=== PATIENT | female | born 1940 | race Caucasian/White ===

== ENCOUNTER 2018-03-09 11:17 | Inpatient (IN) ==
[2018-03-09] MEDS ORDERED: Ipratropium/Albuterol Neb 3 ML IH ONE (11:27)
[2018-03-09] MEDS ORDERED: methylPREDNISolone 125 MG/2 ML VIAL IVP ONE (11:27)
--- NOTE | 2018-03-09 11:47 | Emergency Department Note ---
Disposition Clinical Impression: Community acquired pneumonia Qualifiers: Laterality: unspecified laterality Qualified Code(s): J18.9 - Pneumonia, unspecified organism Disposition: Admitted As Inpatient Condition: Good Referrals: Luciano Berrios CNP [Primary Care Provider] - Forms: ED Satisfaction Letter Time of Disposition: 12:43 General Adult HPI - General Chief complaint: ED Shortness of Breath/Dyspnea Stated complaint: EMERSON Time Seen by Provider: 03/09/18 11:22 Source: patient, EMS Mode of arrival: EMS Limitations: no limitations Nursing Notes Reviewed: Yes Vital Signs Reviewed: Yes - History of Present Illness HPI Narrative: 77-year-old female with significant past medical history of COPD and asthma who is supposed to be on oxygen at night but has lost the prescription presenting to the emergency department chief complaint of shortness of breath. Patient states for the past 3 day she has had progressively worsening of her shortness of breath. Patient also describes changes in her sputum and describes it as a green thick material. Patient states she has been diagnosed with pneumonia around this time of year every year for the past 2-3 years. Patient has been using her nebulizer treatment at home as prescribed but has not been feeling any better with her treatments. She tried one treatment just prior to arrival. Patient states she has had subjective fevers at home at night. Has not taken her temperature. Patient also states she has had intermittent chest pain throughout these episodes located behind the left breast. At this time she is chest pain-free. Patient denies any cardiac history. Pain Scale: 2 - Related Data Home Medications Medication Instructions Recorded Confirmed Lisinopril [Zestril] 10 mg PO DAILY 03/04/16 03/05/16 Tramadol HCl [Ultram] 50 mg PO TID PRN 03/04/16 03/05/16 Multivit-Minerals/Folic/Ginkgo 1 tab PO DAILY 03/05/16 03/05/16 [One Daily For Women 50+ Adv Tb] Previous Rx's Medication Instructions Recorded predniSONE [PredniSONE] 40 mg PO DAILY #9 tablet 03/08/16 Allergies Allergy/AdvReac Type Severity Reaction Status Date / Time No Known Allergies Allergy Verified 03/04/16 14:36 All systems ED: reviewed and negative except as stated. Constitutional: Reports: fever (subjective) Eyes: Reports: as per HPI ENT ED: Reports: as per HPI Cardiovascular: Reports: chest pain, dyspnea on exertion Respiratory: Reports: cough, dyspnea, sputum production Gastrointestinal: Denies: abdominal pain, nausea, vomiting Genitourinary: Reports: as per HPI Musculoskeletal: Reports: as per HPI Integumentary: Reports: as per HPI Neurological: Reports: as per HPI Psychiatric: Reports: as per HPI Endocrine: Reports: as per HPI Hematological/Lymphatic: Reports: as per HPI Allergic/Immunologic: Reports: as per HPI Past Medical History - Past Medical History Attestation: Yes The following information was validated with the patient. Medical history: Reports: cancer, COPD, hyperlipidemia, hypertension Psychiatric history: Reports: no psych history - Social History Smoking Status: Never smoker Smokeless Tobacco Status: No Alcohol use: Reports: none Drug use: Reports: none Physical Exam - General Limitations: no limitations General appearance: alert, in no apparent distress - Head Head exam: atraumatic, normocephalic, normal inspection - Eye Eye exam: Present: normal appearance. Absent: scleral icterus, conjunctival injection - ENT ENT exam: normal exam, mucous membranes moist - Neck Neck exam: Present: normal inspection, full ROM - Chest Chest inspection: Present: normal inspection, symmetric chest wall rise - Respiratory Respiratory exam: Present: other (expiratory wheezing throughout) - Cardiovascular Cardiovascular exam: Present: normal rhythm, tachycardia, normal heart sounds - Abdominal Exam Abdominal exam: Present: soft, Non-Tender. Absent: distention, guarding, rebound - Extremities Exam Extremities exam: Present: normal inspection, full ROM - Neurological Exam Neurological exam: Present: alert, oriented X3 - Psychiatric Psychiatric exam: Present: normal affect, normal mood - Skin Skin exam: Present: warm Course Course Narrative: 77-year-old female presenting with shortness of breath. Patient has COPD. Supposed be on oxygen at home but has not filled the prescription. In the room she is alert and oriented 3. Tachycardic but hemodynamically stable. According to EMS when they arrived oxygen saturation was in the upper 80s. Patient's physical exam shows expiratory wheezing throughout but otherwise no acute abnormality. We will plan to perform a difficulty in breathing workup including basic labs, troponin, EKG, influenza swab, chest x-ray, breathing treatments and steroids. Disposition pending. Patient agrees with this plan. - Reevaluation(s) Reevaluation #1: Patient's laboratory analysis shows mild leukocytosis but otherwise unchanged from baseline. Chest x-ray concerning for focal consolidation. Patient has not had any recent admissions therefore we will provide her with azithromycin and Rocephin for pneumonia and admit her for further treatment and evaluation. Patient remains alert and oriented 3 and hemodynamically stable. Patient agrees with this plan. Family members at bedside agree as well. I spoke with the hospitalist houseperson Dr. Balderrama who agrees to accept the patient at this time. Vital Signs Temperature 98.3 F 03/09/18 11:20 Pulse Rate 106 03/09/18 11:20 Respiratory Rate 20 03/09/18 11:20 Blood Pressure 113/73 03/09/18 11:20 O2 Sat by Pulse Oximetry 100 03/09/18 11:20 Temperature 98.3 F 03/09/18 11:20 Pulse Rate 97 03/09/18 12:11 Respiratory Rate 18 03/09/18 12:11 Blood Pressure 102/58 03/09/18 12:11 O2 Sat by Pulse Oximetry 93 03/09/18 12:11 Oxygen Delivery Oxygen Delivery Room Air Medical Decision Making - Lab Data Result diagrams: 03/09/18 11:51 03/09/18 11:51 Lab Results 03/09/18 03/09/18 03/09/18 Range/Units 11:51 11:51 11:51 WBC 12.2 H (4.3-11.1) K/mcL RBC 4.18 (3.82-4.97) M/mcL Hgb 11.8 (11.5-15.4) g/dL Hct 36.5 (35.3-44.9) % MCV 87.3 (83.0-100.0) fL MCH 28.2 (28.0-33.3) pg MCHC 32.3 (31.6-35.5) g/dL RDW 13.3 (11.5-14.5) % Plt Count 297 (140-400) K/mcL MPV 10.2 (9.4-12.4) fL Immature Gran % 0.4 (0-4) % Seg Neutrophils % 85.8 % Lymphocytes % 6.3 % Monocytes % 6.8 % Eosinophils % 0.4 % Basophils % 0.3 % Neutrophils # 10.4 H (1.6-8.9) K/mcL Lymphocytes # 0.8 (0.6-4.6) K/mcL Monocytes # 0.8 (0.0-1.3) K/mcL Eosinophils # 0.1 (0.0-0.6) K/mcL Basophils # 0.0 (0.0-0.2) K/mcL Sodium 137 (136-145) mEq/L Potassium 4.0 (3.5-5.1) mEq/L Chloride 102 (98-107) mEq/L Carbon Dioxide 23 (23-29) mEq/L BUN 27 H (8-23) mg/dL Creatinine 1.11 (0.60-1.20) mg/dL Est GFR ( Amer) 58 L (> 60) Est GFR (Non-Af Amer) 48 L (> 60) BUN/Creatinine Ratio 24 (6-26) Glucose 153 H (70-105) mg/dL Calculated Osmolality 292 (280-300) Lactic Acid 1.7 (0.5-2.2) mmol/L Calcium 9.5 (8.6-10.3) mg/dL Troponin I < 0.03 (< 0.04) ng/mL B-Natriuretic Peptide (Less than 100) pg/mL 03/09/18 Range/Units 11:51 WBC (4.3-11.1) K/mcL RBC (3.82-4.97) M/mcL Hgb (11.5-15.4) g/dL Hct (35.3-44.9) % MCV (83.0-100.0) fL MCH (28.0-33.3) pg MCHC (31.6-35.5) g/dL RDW (11.5-14.5) % Plt Count (140-400) K/mcL MPV (9.4-12.4) fL Immature Gran % (0-4) % Seg Neutrophils % % Lymphocytes % % Monocytes % % Eosinophils % % Basophils % % Neutrophils # (1.6-8.9) K/mcL Lymphocytes # (0.6-4.6) K/mcL Monocytes # (0.0-1.3) K/mcL Eosinophils # (0.0-0.6) K/mcL Basophils # (0.0-0.2) K/mcL Sodium (136-145) mEq/L Potassium (3.5-5.1) mEq/L Chloride (98-107) mEq/L Carbon Dioxide (23-29) mEq/L BUN (8-23) mg/dL Creatinine (0.60-1.20) mg/dL Est GFR ( Amer) (> 60) Est GFR (Non-Af Amer) (> 60) BUN/Creatinine Ratio (6-26) Glucose (70-105) mg/dL Calculated Osmolality (280-300) Lactic Acid (0.5-2.2) mmol/L Calcium (8.6-10.3) mg/dL Troponin I (< 0.04) ng/mL B-Natriuretic Peptide 21 (Less than 100) pg/mL - EKG Data EKG #1 EKG attestation: Yes I reviewed and interpreted this EKG. EKG results narrative: Sinus tachycardia. 105 beats for minute. VA interval 132, QRS 84, QTC 431. No sign of acute ST segment elevation or ischemia. Compared to previous EKG completed on 03/04/2016 no significant changes noted Attestation Statement - Attestation Attestation: Patient was seen with resident physician. I reviewed the history, physical, assessment and plan, and agree with the findings. I also personally evaluated this patient and had [id number] time with this patient. 77-year-old female the history of COPD presents emergency part with short of breath the last 3-4 days. Patient states she has progressively gotten worse she has had cough with some sputum production. She said similar to pneumonia presentation that she had a year ago. Patient was prescribed home O2 for nighttime use, but she lost the prescription. She has been taking her breathing treatments and just prior to EMS arrival she did not 1 DuoNeb treatment as well. She has had some intermittent chest pain but only with cough. No nausea vomiting or diarrhea. Review of systems as above remainder negative. Physical exam vital signs were stable. ENT is unremarkable. Heart is regular rhythm and rate. Lungs minimal wheezing at this point probably because she just had a breathing treatment. She does have good inflation of the lungs though there is a slight increased work of breathing. Abdomen is soft and nontender. Extremities are unremarkable. Neurologically intact pre-and skin no rashes. Psych normal. ED course we will do 2 more breathing treatments and some steroids. We will also get a chest x-ray and do a cardiac and pulmonary workup to determine any other causes of the shortness of breath. Patient's x-rays consistent with possible pneumonia. This is consistent with her exam and clinical presentation. I will start IV antibiotics and oxygen therapy, continue breathing therapy and I will have the patient admitted for additional evaluation and treatment. She was hemodynamically stable throughout her stay in the emergency department. Hospitalist service was notified. Agree with resident physician assessment and plan.
[2018-03-09 12:07] LABS: Basophils % 0.3 %; Eosinophils # 0.1 K/mcL (0.0-0.6); Eosinophils % 0.4 %; Hematocrit 36.5 % (35.3-44.9); Hemoglobin 11.8 g/dL (11.5-15.4); Immature Granulocytes % 0.4 % (0-4); Lymphocytes # 0.8 K/mcL (0.6-4.6); Lymphocytes % 6.3 %; Mean Corpuscular HGB Conc 32.3 g/dL (31.6-35.5); Mean Corpuscular Hemoglobin 28.2 pg (28.0-33.3); Mean Corpuscular Volume 87.3 fL (83.0-100.0); Mean Platelet Volume 10.2 fL (9.4-12.4); Monocytes # 0.8 K/mcL (0.0-1.3); Monocytes % 6.8 %; Neutrophils # 10.4 K/mcL (1.6-8.9); Platelet Count 297 K/mcL (140-400); Red Blood Count 4.18 M/mcL (3.82-4.97); Red Cell Distribution Width 13.3 % (11.5-14.5); Segmented Neutrophils % 85.8 %
[2018-03-09 12:23] LABS: BUN/Creatinine Ratio 24 (6-26); Blood Urea Nitrogen 27 mg/dL (8-23); Calcium 9.5 mg/dL (8.6-10.3); Carbon Dioxide 23 mEq/L (23-29); Chloride 102 mEq/L (98-107); Glucose 153 mg/dL (70-105); Osmolality,Calculated 292 (280-300); Sodium 137 mEq/L (136-145); eGFR For Non-African Americans 48 (> 60)
[2018-03-09 12:24] LABS: Troponin I < 0.03 ng/mL (< 0.04)
[2018-03-09] MEDS ORDERED: Azithromycin 500 MG in D5% in Water 250 ML IVPB ONE (12:27)
[2018-03-09] MEDS ORDERED: cefTRIAXone 1,000 MG in Water for inj. (sterile) 20 ML 10 ML IVP ONE (12:28)
[2018-03-09] MEDS ORDERED: Naloxone 0.4 MG/ML INJ IVP PRN (12:42)
--- NOTE | 2018-03-09 13:58 | Internal Med History&Physical ---
Date of Encounter: 03/09/18 Time of Encounter: 14:15 Internal Medicine - H&P: HPI Chief complaint: Shortness of breath, cough for 1 week Admitted From: Emergency Dept Plans for Post Hospital Care: Home History of present illness: Ms. Haywood is a 77 year old female patient with a history of COPD, asthma, hypertension who presented to the ER with complaints of shortness of breath and cough. Her symptoms have been going on for one week now. In feeling weak overall. She is had greenish colored sputum. This morning she woke up and had worsening of shortness of breath. She took her nebulizers with no improvement in her symptoms. As such she decided to come to the ER. She denies any chest pain but reports exertional dyspnea that has been going on for several months now. She denies any pedal edema. No nausea or vomiting. Patient reports extreme tiredness and fatigue. She also has episodes of dizziness when she stands up from sitting position. Past Med Surg Social Fam HX - Past Medical History Attestation: Yes The following information was validated with the patient. Source: patient Medical history: cancer, COPD, hyperlipidemia, hypertension Additional medical history: cervical canver Psychiatric history: no psych history - Social History Smoking Status: Never smoker Smokeless Tobacco Status: No Alcohol use: none Drug use: none - Additional Family History Additional family history: Family history reviewed and found to be noncontributory at this time Internal Medicine - H&P: Meds Lisinopril [Zestril] 10 mg PO DAILY 03/04/16 [History] Tramadol HCl [Ultram] 50 mg PO TID PRN 03/04/16 [History] Multivit-Minerals/Folic/Ginkgo [One Daily For Women 50+ Adv Tb] 1 tab PO DAILY 03/05/16 [History] predniSONE [PredniSONE] 40 mg PO DAILY #9 tablet 03/08/16 [Rx] Allergy/AdvReac Type Severity Reaction Status Date / Time No Known Allergies Allergy Verified 03/04/16 14:36 All Systems PM: A 10-system review of systems was performed and is negative for pertinent findings except as documented above in the HPI. - Constitutional Constitutional: fatigue, malaise, no chills, no fever(s), no night sweats - EENT Eyes: no change in vision, no discharge, no pain, no photophobia Ears: no ear discharge, no ear pain, no tinnitus Nose, mouth and throat: no dysphagia, no nasal discharge, no neck pain, no sore throat - Cardiovascular Cardiovascular ROS IM: no chest pain, no diaphoresis, no dyspnea, no lightheadedness, no palpitations, no syncope - Respiratory Respiratory: cough, dyspnea on exertion, change in phlegm color, no dyspnea, no wheezing, no excessive phlegm production - Gastrointestinal Gastrointestinal: no abdominal pain, no diarrhea, no hematemesis, no hematochezia, no melena, no nausea, no vomiting - Genitourinary Genitourinary: no change in urinary stream, no dysuria, no flank pain, no hematuria Additional comments: Patient reports symptoms of bladder prolapse - Musculoskeletal Musculoskeletal ROS IM: no numbness, no tingling - Integumentary Integumentary IM: no rash, no unusual bruising - Neurological Neurological ROS: no confusion, no convulsions, no focal weakness, no numbness, no tingling, no tremor(s) - Hematologic/Lymphatic Hematologic/Lymphatic: no easy bruising - Constitutional Vitals: Temp Pulse Resp BP Pulse Ox 98.3 F 97 18 102/58 93 03/09/18 11:20 03/09/18 12:11 03/09/18 12:11 03/09/18 12:11 03/09/18 12:11 General appearance: Present: cooperative, A&O X 3, pleasant, answers questions appropriately Exam: General: Patient is alert, no acute distress, oriented x 3 Head: atraumatic, normocephalic, Neck: normal inspection, trachea midline, full ROM, no carotid bruits Chest: normal inspection, symmetric chest rise Respiratory: Good respiratory effort. Normal breath sounds. No wheezing audible at this time Cardiovascular: Regular rate and rhythm. s1 and s2 normal No clicks, rubs, gallops, or murmurs. No pedal edema Abdomen: Abdomen is soft, nontender. Bowel sounds are present Musculoskeletal: Spontaneously moving all extremities Skin: warm, dry, intact. Neuro: Alert oriented x 3 normal cranial nerves, no focal deficits Psych: Patient's affect is flat Internal Med - H&P Results - Labs CBC & Chem 7: 03/09/18 11:51 03/09/18 11:51 Labs: Short CBC 03/09/18 Range/Units 11:51 WBC 12.2 H (4.3-11.1) K/mcL Hgb 11.8 (11.5-15.4) g/dL Hct 36.5 (35.3-44.9) % Plt Count 297 (140-400) K/mcL Neutrophils # 10.4 H (1.6-8.9) K/mcL BMP 03/09/18 11:51 Sodium 137 Potassium 4.0 Chloride 102 Carbon Dioxide 23 BUN 27 H Creatinine 1.11 Glucose 153 H Calcium 9.5 Cardiac Enzymes 03/09/18 Range/Units 11:51 Troponin I < 0.03 (< 0.04) ng/mL - Impressions ITS Impressions Chest X-Ray 03/09/18 11:27 IMPRESSION: Mild dependent left basilar opacification, concerning for pneumonia or possibly atelectasis. D/ / Marco Lugo MD / Marco Lugo MD Interpreting Provider: Marco Lugo MD - Assessment and plan (1) Acute exacerbation of chronic obstructive airways disease Current Visit: Yes Status: Acute Assessment and plan: Patient presenting with symptoms of acute COPD exacerbation. She did receive Broncholate to bronchodilator nebs in the ER with significant improvement in her symptoms. Will continue nebs. IV steroids. (2) Community acquired pneumonia Current Visit: Yes Status: Acute Assessment and plan: Patient reporting subjective fevers along with cough and increased sputum production going on for one week now. Chest x-ray shows possible left basilar opacity. Will treat for pneumonia and due to possibly strep pneumo. IV antibiotics. Follow culture results. Qualifiers: Laterality: left Lung location: lower lobe of lung Qualified Code(s): J18.1 - Lobar pneumonia, unspecified organism (3) Bladder prolapse Current Visit: Yes Status: Acute Assessment and plan: Patient reports history of bladder prolapse but has not seen any physician for this. She is currently able to pass urine on her own although she does have some difficulty doing so. Recommend outpatient follow-up with urology. (4) Fatigue Current Visit: Yes Status: Chronic Assessment and plan: Will check thyroid profile. Patient has normal hemoglobin levels. Qualifiers: Fatigue type: chronic, unspecified Qualified Code(s): R53.82 - Chronic fati charisse, unspecified (5) Dizziness Current Visit: Yes Status: Acute Assessment and plan: Will check orthostatics. Patient reports dizziness while standing up from a lying down or sitting position occasionally. Gentle IV hydration (6) Exertional dyspnea Current Visit: Yes Status: Acute Assessment and plan: Patient reports exertional dyspnea which is chronic for her. We will obtain 2-D echocardiogram to evaluate. BNP is normal. Patient does not have any lower extremity edema. (7) Essential hypertension Current Visit: Yes Status: Chronic Assessment and plan: Monitor blood pressure. Resume lisinopril if tolerated (8) DVT prophylaxis Current Visit: Yes Status: Acute Assessment and plan: With subcutaneous heparin - Time Spent With Patient Total time spent is greater than 50% in coordination of care (as documented) at patient's floor/unit and/or counseling patient:
[2018-03-09] MEDS: Ipratropium/Albuterol Neb 3 ML IH SCH ×3 (14:28→20:01)
[2018-03-09] MEDS: cefTRIAXone 1,000 MG in Water for inj. (sterile) 20 ML 10 ML IVPB SCH (14:28)
[2018-03-09] MEDS ORDERED: 0.9 % Sodium Chloride 500 ML IVC ONE (15:54)
[2018-03-09] MEDS: methylPREDNISolone 125 MG/2 ML VIAL IVP SCH (16:44)
[2018-03-09] MEDS: traMADol 50 MG TABLET PO PRN (19:38)
[2018-03-10] MEDS: Ipratropium/Albuterol Neb 3 ML IH SCH ×7 (00:03→22:01)
[2018-03-10 06:19] LABS: Basophils % 0.1 %; Hematocrit 31.3 % (35.3-44.9); Immature Granulocytes % 0.6 % (0-4); Lymphocytes % 2.9 %; Mean Corpuscular HGB Conc 32.3 g/dL (31.6-35.5); Mean Corpuscular Hemoglobin 28.2 pg (28.0-33.3); Mean Corpuscular Volume 87.4 fL (83.0-100.0); Mean Platelet Volume 10.4 fL (9.4-12.4); Monocytes # 0.3 K/mcL (0.0-1.3); Monocytes % 1.7 %; Neutrophils # 17.9 K/mcL (1.6-8.9); Platelet Count 294 K/mcL (140-400); Red Blood Count 3.58 M/mcL (3.82-4.97); Red Cell Distribution Width 13.4 % (11.5-14.5); Segmented Neutrophils % 94.7 %
[2018-03-10 06:23] LABS: Hemoglobin 10.1 g/dL (11.5-15.4); Lymphocytes # 0.6 K/mcL (0.6-4.6)
[2018-03-10 06:39] LABS: BUN/Creatinine Ratio 27 (6-26); Blood Urea Nitrogen 28 mg/dL (8-23); Calcium 9.7 mg/dL (8.6-10.3); Carbon Dioxide 22 mEq/L (23-29); Chloride 101 mEq/L (98-107); Glucose 303 mg/dL (70-105); Osmolality,Calculated 295 (280-300); Potassium 3.9 mEq/L (3.5-5.1); Sodium 134 mEq/L (136-145); eGFR For Non-African Americans 53 (> 60)
[2018-03-10 06:53] LABS: Thyroid Stimulating Hormone 0.33 mcIU/mL (0.340-5.600)
[2018-03-10 08:35] LABS: Estimated Average Glucose 134 mg/dl; Hemoglobin A1C 6.3 %
[2018-03-10] MEDS: cefTRIAXone 1,000 MG in Water for inj. (sterile) 20 ML 10 ML IVPB SCH (08:35)
[2018-03-10] MEDS: traMADol 50 MG TABLET PO PRN ×3 (08:36→23:25)
[2018-03-10] MEDS: methylPREDNISolone 125 MG/2 ML VIAL IVP SCH ×2 (08:36)
[2018-03-10 10:58] LABS: Adenovirus Not Detected (Not Detect); Bordetella Pertussis Not Detected (Not Detect); Chlamydophila pneumoniae Not Detected (Not Detect); Coronavirus 229E Not Detected (Not Detect); Coronavirus HKU1 Not Detected (Not Detect); Coronavirus NL63 Not Detected (Not Detect); Coronavirus OC43 Not Detected (Not Detect); Human Metapneumovirus Not Detected (Not Detect); Human Rhinovirus/Enterovirus Not Detected (Not Detect); Influenza A Subtype 2009 H1 Not Detected (Not Detect); Influenza A Untypeable Not Detected (Not Detect); Influenza B Not Detected (Not Detect); Mycoplasma pneumoniae Not Detected (Not Detect); Parainfluenza Virus 1 Not Detected (Not Detect); Parainfluenza Virus 2 Not Detected (Not Detect); Parainfluenza Virus 3 Not Detected (Not Detect); Parainfluenza Virus 4 Not Detected (Not Detect); Respiratory Syncytial Virus Not Detected (Not Detect)
--- NOTE | 2018-03-10 11:37 | Internal Med Progress Note ---
<MaribethEstefani meza - Last Filed: 03/10/18 11:35> Hospitalist Progress Note - Encounter Date of Encounter: 03/10/18 Time of Encounter: 11:35 - Subjective Interval History: Patient is feeling better at times, but still having fatigue and weakness. She has a nonproductive cough, but feels mucus in her chest - was taking mucus medicine BID at home. - Exam Vitals: Temp Pulse Resp BP Pulse Ox 98.0 F 120 18 110/58 99 03/10/18 07:34 03/10/18 07:34 03/10/18 07:34 03/10/18 07:34 03/10/18 07:34 Exam: General: Patient is alert, no acute distress, oriented x 3 Head: atraumatic, normocephalic, Chest: normal inspection, symmetric chest rise Respiratory: Good respiratory effort. Normal breath sounds. No wheezing Cardiovascular: Regular rate and rhythm. s1 and s2 normal No clicks, rubs, gallops, or murmurs. No pedal edema Abdomen: Abdomen is soft, nontender. Bowel sounds are present Musculoskeletal: Spontaneously moving all extremities Skin: warm, dry, intact. Neuro: Alert oriented x 3 normal cranial nerves, no focal deficits - Assessment and Plan (1) Acute respiratory failure with hypoxia Current Visit: Yes Status: Acute Assessment and Plan: currently on 2 L via NC does not use home O2 - patient reports her PCP ordered a "breathing machine" for use at night, unsure if this is oxygen or CPAP flu A/B negative in ER; RIP negative (2) Community acquired pneumonia Current Visit: Yes Status: Acute Assessment and Plan: rocephin and azithromycin add guaifenesin/dextromethorphan (3) Acute exacerbation of chronic obstructive airways disease Current Visit: Yes Status: Acute Assessment and Plan: duoneb q4h solumedrol 40 mg BID (4) Dizziness Current Visit: Yes Status: Acute Assessment and Plan: improved (5) Exertional dyspnea Current Visit: Yes Status: Chronic Assessment and Plan: chronic normal BNP echo ordered (6) Essential hypertension Current Visit: Yes Status: Chronic Assessment and Plan: home lisinopril being held BP normal to low counseled patient and her children on the goal BP of <150/90 due to her age (7) Fatigue Current Visit: Yes Status: Chronic Assessment and Plan: chronic hemoglobin normal T4 normal DVT Prophylaxis: heparin SQ - Time Spent with Patient Total time spent is greater than 50% in coordination of care (as documented) at patient's floor/unit and/or counseling patient: Internal Medicine: Result - Labs CBC & Chem 7: 03/10/18 05:54 03/10/18 05:54 Labs: Short CBC 03/09/18 03/10/18 Range/Units 11:51 05:54 WBC 12.2 H 18.9 H D (4.3-11.1) K/mcL Hgb 11.8 10.1 L D (11.5-15.4) g/dL Hct 36.5 31.3 L (35.3-44.9) % Plt Count 297 294 (140-400) K/mcL Neutrophils # 10.4 H 17.9 H (1.6-8.9) K/mcL BMP 03/09/18 03/10/18 11:51 05:54 Sodium 137 134 L Potassium 4.0 3.9 Chloride 102 101 Carbon Dioxide 23 22 L BUN 27 H 28 H Creatinine 1.11 1.02 Glucose 153 H 303 H Calcium 9.5 9.7 Cardiac Enzymes 03/09/18 Range/Units 11:51 Troponin I < 0.03 (< 0.04) ng/mL - Impressions Impressions Chest X-Ray 03/09/18 11:27 IMPRESSION: Mild dependent left basilar opacification, concerning for pneumonia or possibly atelectasis. D/ / Marco Lugo MD / Marco Lugo MD Interpreting Provider: Marco Lugo MD Consult Discharge Plan - Plan Referrals: Luciano Berrios CNP [Primary Care Provider] - 03/20/18 1:15 pm <Carlos Ayala - Last Filed: 03/10/18 15:34> Hospitalist Progress Note - Encounter Date of Encounter: 03/10/18 - Exam Vitals: Temp Pulse Resp BP Pulse Ox 98.5 F 122 17 105/52 97 03/10/18 11:59 03/10/18 12:40 03/10/18 12:40 03/10/18 11:59 03/10/18 12:40 - Assessment and Plan (1) Acute exacerbation of chronic obstructive airways disease Current Visit: Yes Status: Acute (2) DVT prophylaxis Current Visit: Yes Status: Acute (3) Community acquired pneumonia Current Visit: Yes Status: Acute (4) Bladder prolapse Current Visit: Yes Status: Acute (5) Fatigue Current Visit: Yes Status: Chronic (6) Dizziness Current Visit: Yes Status: Acute (7) Exertional dyspnea Current Visit: Yes Status: Chronic (8) Essential hypertension Current Visit: Yes Status: Chronic - Time Spent with Patient Total time spent is greater than 50% in coordination of care (as documented) at patient's floor/unit and/or counseling patient: Internal Medicine: Result - Labs CBC & Chem 7: 03/10/18 05:54 03/10/18 05:54 Labs: Short CBC 03/10/18 Range/Units 05:54 WBC 18.9 H D (4.3-11.1) K/mcL Hgb 10.1 L D (11.5-15.4) g/dL Hct 31.3 L (35.3-44.9) % Plt Count 294 (140-400) K/mcL Neutrophils # 17.9 H (1.6-8.9) K/mcL BMP 03/10/18 05:54 Sodium 134 L Potassium 3.9 Chloride 101 Carbon Dioxide 22 L BUN 28 H Creatinine 1.02 Glucose 303 H Calcium 9.7 - Impressions Impressions Echocardiogram 03/10/18 15:03 Impressions: LVEF 65-70%. Normal LV chamber size, wall thickness and function. Mild left ventricular diastolic dysfunction. Normal right ventricular structure and function. No evidence of pulmonary hypertension. No significant valvular dysfunction. Left Ventricular Wall Motion: Rest Echo Findings All wall segments showed normal motion. Findings: Study Quality * Technically adequate exam. ECG Findings * Sinus tachycardia. Left Ventricle * LVEF 65-70%. * Normal LV chamber size, wall thickness and function. * Mild left ventricular diastolic dysfunction. Right Ventricle * Normal right ventricular structure and function. Left Atrium * Moderately dilated left atrium. Right Atrium * Normal right atrial size. Aortic Valve * Trileaflet aortic valve. * Mildly sclerotic aortic valve leaflets. * No aortic regurgitation. * No aortic stenosis. Mitral Valve * Normal mitral valve structure and function. * No mitral regurgitation. * No mitral stenosis. Tricuspid Valve * Normal tricuspid valve structure and function. * Trace tricuspid regurgitation. * No evidence of pulmonary hypertension. Pulmonic Valve * Pulmonic valve is not well visualized. * No pulmonic regurgitation. Aorta * Normally sized aortic root. Pericardium * The pericardium appears normal. IVC * Normal IVC dimensions and inspiratory collapse. Pulmonary Artery * Normal visualized portions of the main pulmonary artery. - Attending Attestation I examined this patient and my medical decision-making was reviewed with the Resident Physician Dr. Azevedo. I agree with the documented findings, disposition and treatment plan as described except to the extent set forth below. Ms. Haywood is a 77 y/o F with known COPD patient admitted here for worsening shortness of breath, cough with greenish expectoration. Her chest x-ray showed left lower lobe pneumonia. Pt states she is feeling better today. Still having moderate shortness of breath and dyspnea on exertion Gen: A, A, O x 3 Chest: Moderate wheezing, No rales, no crackles Heart: S1S2+ Tachycardia Psych: Anxious a/p 1. Acute pneumonia 2. Acute hypoxic resp failure 3. Acute COPD exacerbation 4. Sinus tachycardia mostly bacterial pneumonia respiratory viral panel is negative continue empirical antibiotic Rocephin and azithromycin IV hydration start tapering steroids May need home O2 eval <Estefani Azevedo - Last Filed: 03/10/18 11:35> (2) Community acquired pneumonia Qualifiers: Laterality: left Lung location: lower lobe of lung Qualified Code(s): J18.1 - Lobar pneumonia, unspecified organism (7) Fatigue Qualifiers: Fatigue type: chronic, unspecified Qualified Code(s): R53.82 - Chronic fatigue, unspecified <Carlos Ayala - Last Filed: 03/10/18 15:34> (3) Community acquired pneumonia Qualifiers: Laterality: left Lung location: lower lobe of lung Qualified Code(s): J18.1 - Lobar pneumonia, unspecified organism (5) Fatigue Qualifiers: Fatigue type: chronic, unspecified Qualified Code(s): R53.82 - Chronic fatigue, unspecified
[2018-03-10] MEDS: GuaiFENesin/Dextromethorphan TABLET PO SCH ×2 (12:27→20:20)
[2018-03-10] MEDS: Acetaminophen 325 MG TABLET PO PRN (12:27)
[2018-03-10] MEDS: Azithromycin 500 MG in D5% in Water 250 ML IVPB SCH (12:27)
[2018-03-10] MEDS ORDERED: *HR* LORazepam 0.5 MG TABLET PO PRN (15:26)
--- NOTE | 2018-03-10 15:26 | Electrocardiograph Report ---
[address] [address] Test Date: 2018-03-09 Pat Name: Brianna Haywood Department: EXAM1 Room: [facility] Gender: F Molded Parts Inspector: : 1940 Requested By: Srinivasan Bunn Order Number: [id number] Reading MD: Srikanth Pace Measurements Intervals [place] Rate: 105 P: 75 NE: 132 QRS: 80 QRSD: 84 T: 74 QT: 326 QTc: 431 Interpretive Statements Sinus tachycardia Electronically Signed On 03-10-2018 15:24:36 EST by Srikanth Pace
[2018-03-10] MEDS ORDERED: 0.9 % Sodium Chloride 1,000 ML IVC SCH (15:30)
[2018-03-10] MEDS: *HR* Heparin 5,000 UNIT/ML VIAL SQ SCH (17:40)
[2018-03-10] MEDS: MethylPREDNISolone 40 MG/ML VIAL IVP SCH (17:40)
[2018-03-10] MEDS ORDERED: Ipratropium/Albuterol Neb 3 ML IH PRN (23:07)
[2018-03-11] MEDS: *HR* Heparin 5,000 UNIT/ML VIAL SQ SCH ×2 (05:25→17:46)
[2018-03-11] MEDS: MethylPREDNISolone 40 MG/ML VIAL IVP SCH (05:26)
[2018-03-11] MEDS: Acetaminophen 325 MG TABLET PO PRN ×2 (05:33→19:58)
[2018-03-11 07:26] LABS: Basophils % 0.1 %; Monocytes % 4.6 %; Red Cell Distribution Width 13.8 % (11.5-14.5)
[2018-03-11 07:28] LABS: Hematocrit 29.6 % (35.3-44.9); Hemoglobin 9.6 g/dL (11.5-15.4); Immature Granulocytes % 1.1 % (0-4); Lymphocytes % 3.5 %; Mean Corpuscular HGB Conc 32.4 g/dL (31.6-35.5); Mean Corpuscular Hemoglobin 28.6 pg (28.0-33.3); Mean Corpuscular Volume 88.1 fL (83.0-100.0); Mean Platelet Volume 10.4 fL (9.4-12.4); Monocytes # 1.3 K/mcL (0.0-1.3); Neutrophils # 25.9 K/mcL (1.6-8.9); Platelet Count 309 K/mcL (140-400); Red Blood Count 3.36 M/mcL (3.82-4.97); Segmented Neutrophils % 90.7 %
[2018-03-11 07:50] LABS: Platelet Estimate Normal (Normal)
[2018-03-11] MEDS: traMADol 50 MG TABLET PO PRN ×2 (08:20→17:45)
[2018-03-11] MEDS: GuaiFENesin/Dextromethorphan TABLET PO SCH ×2 (08:20→19:58)
[2018-03-11] MEDS: cefTRIAXone 1,000 MG in Water for inj. (sterile) 20 ML 10 ML IVPB SCH (08:20)
--- NOTE | 2018-03-11 09:04 | Internal Med Progress Note ---
Hospitalist Progress Note - Encounter Date of Encounter: 03/11/18 Time of Encounter: 09:01 - Subjective Interval History: Patient states she is feeling better today. - Exam Vitals: Temp Pulse Resp BP Pulse Ox 98.2 F 81 17 117/66 96 03/11/18 08:01 03/11/18 08:01 03/11/18 08:01 03/11/18 08:01 03/11/18 08:01 Exam: General: Patient is alert, no acute distress, oriented x 3 Head: atraumatic, normocephalic, Chest: normal inspection, symmetric chest rise Respiratory: Good respiratory effort. Normal breath sounds. No wheezing Cardiovascular: Regular rate and rhythm. s1 and s2 normal No clicks, rubs, gallops, or murmurs. No pedal edema Abdomen: Abdomen is soft, nontender. Bowel sounds are present Musculoskeletal: Spontaneously moving all extremities Skin: warm, dry, intact. Neuro: Alert oriented x 3 normal cranial nerves, no focal deficits - Assessment and Plan (1) Acute respiratory failure with hypoxia Current Visit: Yes Status: Acute Assessment and Plan: ambulatory pulse ox prior to discharge (2) Community acquired pneumonia Current Visit: Yes Status: Acute (3) Acute exacerbation of chronic obstructive airways disease Current Visit: Yes Status: Acute (4) Dizziness Current Visit: Yes Status: Acute (5) Exertional dyspnea Current Visit: Yes Status: Chronic (6) Essential hypertension Current Visit: Yes Status: Chronic (7) Fatigue Current Visit: Yes Status: Chronic - Time Spent with Patient Total time spent is greater than 50% in coordination of care (as documented) at patient's floor/unit and/or counseling patient: Internal Medicine: Result - Labs CBC & Chem 7: 03/11/18 06:39 03/10/18 05:54 Labs: Short CBC 03/11/18 Range/Units 06:39 WBC 28.5 H D (4.3-11.1) K/mcL Hgb 9.6 L (11.5-15.4) g/dL Hct 29.6 L (35.3-44.9) % Plt Count 309 (140-400) K/mcL Neutrophils # 25.9 H (1.6-8.9) K/mcL - Impressions Impressions Echocardiogram 03/10/18 15:03 Impressions: LVEF 65-70%. Normal LV chamber size, wall thickness and function. Mild left ventricular diastolic dysfunction. Normal right ventricular structure and function. No evidence of pulmonary hypertension. No significant valvular dysfunction. Left Ventricular Wall Motion: Rest Echo Findings All wall segments showed normal motion. Findings: Study Quality * Technically adequate exam. ECG Findings * Sinus tachycardia. Left Ventricle * LVEF 65-70%. * Normal LV chamber size, wall thickness and function. * Mild left ventricular diastolic dysfunction. Right Ventricle * Normal right ventricular structure and function. Left Atrium * Moderately dilated left atrium. Right Atrium * Normal right atrial size. Aortic Valve * Trileaflet aortic valve. * Mildly sclerotic aortic valve leaflets. * No aortic regurgitation. * No aortic stenosis. Mitral Valve * Normal mitral valve structure and function. * No mitral regurgitation. * No mitral stenosis. Tricuspid Valve * Normal tricuspid valve structure and function. * Trace tricuspid regurgitation. * No evidence of pulmonary hypertension. Pulmonic Valve * Pulmonic valve is not well visualized. * No pulmonic regurgitation. Aorta * Normally sized aortic root. Pericardium * The pericardium appears normal. IVC * Normal IVC dimensions and inspiratory collapse. Pulmonary Artery * Normal visualized portions of the main pulmonary artery. Consult Discharge Plan - Plan Referrals: Luciano Berrios CNP [Primary Care Provider] - 03/20/18 1:15 pm (2) Community acquired pneumonia Qualifiers: Laterality: left Lung location: lower lobe of lung Qualified Code(s): J18.1 - Lobar pneumonia, unspecified organism (7) Fatigue Qualifiers: Fatigue type: chronic, unspecified Qualified Code(s): R53.82 - Chronic fatigue, unspecified
--- NOTE | 2018-03-11 09:08 | Discharge Summary ---
Orders not resulted at time of discharge: Pending orders 03/10/18 09:53 EKG [ECG 12 lead ECG] [ECG] Routine 03/11/18 07:48 BMP [Basic Metabolic Panel] Routine Date of Encounter: 03/11/18 Time of Encounter: 09:05 - Discharge Diagnosis (1) Acute respiratory failure with hypoxia Priority: Primary Status: Acute (2) Community acquired pneumonia Priority: Primary Status: Acute Qualifiers: Laterality: left Lung location: lower lobe of lung Qualified Code(s): J18.1 - Lobar pneumonia, unspecified organism (3) Acute exacerbation of chronic obstructive airways disease Priority: Primary Status: Acute (4) Dizziness Priority: Secondary Status: Acute (5) Exertional dyspnea Priority: Secondary Status: Chronic (6) Essential hypertension Priority: Secondary Status: Chronic (7) Fatigue Priority: Secondary Status: Chronic Qualifiers: Fatigue type: chronic, unspecified Qualified Code(s): R53.82 - Chronic fatigue, unspecified Hospital course: Ms. Haywood is a 77 year old female admitted for COPD exacerbation due to pneumonia with acute hypoxic respiratory failure. She was treated with solumedrol, duonebs, rocephin, and azithromycin. On the day of discharge, she is feeling better. - Time Spent with Patient Total time spent providing and/or coordinating discharge services: - Discharge Medications Home Medications: Tramadol HCl [Ultram] 50 mg PO TID PRN 03/04/16 [History] Multivit-Minerals/Folic/Ginkgo [One Daily For Women 50+ Adv Tb] 1 tab PO DAILY 03/05/16 [History] predniSONE [PredniSONE] 40 mg PO DAILY #9 tablet 03/08/16 [Rx] Albuterol Sulfate [Albuterol Inhaler] 2 puff IH Q6H PRN 03/09/18 [History] Ipratropium Neb [Atrovent Neb] 0.5 mg IH Q6H PRN MDD USES WITH ALBUTEROL 03/09/18 [History] Lisinopril [Zestril] 10 mg PO DAILY 03/09/18 [History] Allergies/Adverse Reactions: Allergy/AdvReac Type Severity Reaction Status Date / Time No Known Allergies Allergy Verified 03/04/16 14:36 Date of admission: 03/09/18 12:51 Primary care physician: Leandro Berrios CNP Consults: 03/09/18 14:39 Consult to Geospatial Imagery Intelligence Analyst [CONS] Routine Reason for SW Consult: discharge planning 03/10/18 10:42 Consult to Nurse Navigator [CONS] Routine Comment: COPD, PNEUMONIA Discharging clinician: Estefani Azevedo Anticipated date of discharge: 03/11/18 - Constitutional Vitals: Temp Pulse Resp BP Pulse Ox 98.2 F 81 17 117/66 96 03/11/18 08:01 03/11/18 08:01 03/11/18 08:01 03/11/18 08:01 03/11/18 08:01 General appearance: Present: cooperative, A&O X 3, pleasant, answers questions appropriately Exam: . - Head Head exam: Present: atraumatic, normocephalic - Eye Eye exam: Present: PERRL, conjuntiva pink, sclera anicteric Pupils: Present: PERRL - Neck Neck exam general surgery: Present: normal inspection, supple, trachea midline - Respiratory Respiratory exam: Present: decreased breath sounds, CTAB - Cardiovascular Cardiovascular exam: Present: RRR, +S1, +S2. Absent: systolic murmur - GI/Abdominal GI/Abdominal exam: Present: normal bowel sounds, soft. Absent: tenderness - Extremities Exam Extremities exam: Absent: pedal edema Additional comments: posterior tibial pulses 2/4 and equal - Neurological Exam Neurological exam: Present: alert, oriented X3, no focal deficits - Skin Skin exam: Present: dry, intact, warm - Patient Status Disposition: Home, Self-Care Condition: Good Functional capacity at discharge: uses cane/walker Overall status at discharge: patient is progressing back to baseline - Discharge Instructions Follow Up With: Luciano Berrios CNP [Primary Care Provider] - 03/20/18 1:15 pm - Diet and Activity Activity: resume usual activities as tolerated Diet: low fat, low cholesterol
[2018-03-11 09:29] LABS: BUN/Creatinine Ratio 26 (6-26); Blood Urea Nitrogen 23 mg/dL (8-23); Calcium 9.2 mg/dL (8.6-10.3); Carbon Dioxide 19 mEq/L (23-29); Chloride 102 mEq/L (98-107); Glucose 143 mg/dL (70-105); Osmolality,Calculated 290 (280-300); Potassium 4.9 mEq/L (3.5-5.1); Sodium 137 mEq/L (136-145); eGFR For Non-African Americans > 60 (> 60)
[2018-03-11] MEDS: Azithromycin 500 MG in D5% in Water 250 ML IVPB SCH (12:13)
--- NOTE | 2018-03-11 15:08 | Internal Med Progress Note ---
Hospitalist Progress Note - Encounter Date of Encounter: 03/11/18 Time of Encounter: 15:05 - Subjective Interval History: Ms. Haywood is a 77 y/o F with known COPD patient admitted here for worsening shortness of breath, cough with greenish expectoration. Her chest x-ray showed left lower lobe pneumonia. Patient was admitted in the hospital and placed her on empirical antibiotic Rocephin + Azithromycin. Pt states she is feeling better today. Still having moderate shortness of breath and dyspnea on exertion. Her WBC jumped up to 28.5 today. She is still on 2 lit O2 through [place]. - Exam Vitals: Temp Pulse Resp BP Pulse Ox 97.8 F 94 19 125/72 96 03/11/18 11:32 03/11/18 11:32 03/11/18 11:32 03/11/18 11:32 03/11/18 11:32 Exam: Gen: Alert, awake, Oriented to time,place and person Chest: Diminished breath sounds B/L, mild wheezing, No crackles, No rales Heart: S1S2+ RRR No murmurs Abd: Soft, NT, BS +, No organomegaly Ext: No edema, pulses are palpable, No calf tenderness Neuro : Benign findings Skin: No rash. - Assessment and Plan (1) Acute exacerbation of chronic obstructive airways disease Current Visit: Yes Status: Acute Assessment and Plan: Due to pneumonia improving switch to oral steroids and continue tapering continue bronchodilator therapy Patient does need to stay in the hospital more than 2 midnights due to her complex medical problems. So we will change her to full admission today. I did review my colleague Dr. Balderrama's H & P including HPI, PMH, PSH, FH, SH, and ROS no changes noticed (2) Community acquired pneumonia Current Visit: Yes Status: Acute Assessment and Plan: Chest x-ray showed left lower lobe pneumonia mostly bacterial pneumonia continue empirical antibiotic Rocephin and azithromycin (3) Acute respiratory failure with hypoxia Current Visit: Yes Status: Acute Assessment and Plan: Currently on 2 lit oxygen may need home O2 eval (4) Dizziness Current Visit: Yes Status: Acute Assessment and Plan: Due to pneumonia improved (5) Essential hypertension Current Visit: Yes Status: Chronic Assessment and Plan: Stable blood pressure continue home medication (6) Leukocytosis Current Visit: Yes Status: Acute Assessment and Plan: Reactive mostly due to steroids started tapering steroids continue close monitoring white count (7) DVT prophylaxis Current Visit: Yes Status: Acute Assessment and Plan: With subcutaneous heparin - Time Spent with Patient Total time spent is greater than 50% in coordination of care (as documented) at patient's floor/unit and/or counseling patient: Internal Medicine: Result - Labs CBC & Chem 7: 03/11/18 06:39 03/11/18 07:48 Labs: Short CBC 03/11/18 Range/Units 06:39 WBC 28.5 H D (4.3-11.1) K/mcL Hgb 9.6 L (11.5-15.4) g/dL Hct 29.6 L (35.3-44.9) % Plt Count 309 (140-400) K/mcL Neutrophils # 25.9 H (1.6-8.9) K/mcL BMP 03/11/18 07:48 Sodium 137 Potassium 4.9 Chloride 102 Carbon Dioxide 19 L BUN 23 Creatinine 0.87 Glucose 143 H Calcium 9.2 Consult Discharge Plan - Plan Referrals: Luciano Berrios CNP [Primary Care Provider] - 03/20/18 1:15 pm (2) Community acquired pneumonia Qualifiers: Laterality: left Lung location: lower lobe of lung Qualified Code(s): J18.1 - Lobar pneumonia, unspecified organism
[2018-03-12] MEDS: *HR* Heparin 5,000 UNIT/ML VIAL SQ SCH (06:06)
[2018-03-12] MEDS: traMADol 50 MG TABLET PO PRN (06:06)
[2018-03-12] MEDS: cefTRIAXone 1,000 MG in Water for inj. (sterile) 20 ML 10 ML IVPB SCH (08:07)
[2018-03-12] MEDS: GuaiFENesin/Dextromethorphan TABLET PO SCH (08:07)
[2018-03-12] MEDS ORDERED: predniSONE 20 MG TABLET PO SCH (09:00)
[2018-03-12 11:26] LABS: Basophils % 0.2 %; Eosinophils % 0.1 %; Hematocrit 35.8 % (35.3-44.9); Hemoglobin 11.5 g/dL (11.5-15.4); Immature Granulocytes % 1.7 % (0-4); Lymphocytes # 1.1 K/mcL (0.6-4.6); Lymphocytes % 9.2 %; Mean Corpuscular HGB Conc 32.1 g/dL (31.6-35.5); Mean Corpuscular Hemoglobin 28.3 pg (28.0-33.3); Mean Corpuscular Volume 88.2 fL (83.0-100.0); Monocytes # 0.7 K/mcL (0.0-1.3); Monocytes % 5.8 %; Platelet Count 321 K/mcL (140-400); Red Blood Count 4.06 M/mcL (3.82-4.97); Red Cell Distribution Width 13.6 % (11.5-14.5)
[2018-03-12 11:30] LABS: Neutrophils # 10.1 K/mcL (1.6-8.9)
--- NOTE | 2018-03-12 13:24 | Discharge Summary ---
- NOTES TO OUTPATIENT PROVIDER Notes to Outpatient Provider: f/u with PCP in one week. Date of Encounter: 03/12/18 Time of Encounter: 13:22 - Discharge Diagnosis (1) Acute exacerbation of chronic obstructive airways disease Priority: Primary Status: Acute (2) Community acquired pneumonia Priority: Primary Status: Acute Qualifiers: Laterality: left Lung location: lower lobe of lung Qualified Code(s): J18.1 - Lobar pneumonia, unspecified organism (3) Acute respiratory failure with hypoxia Priority: Primary Status: Acute (4) Dizziness Priority: Secondary Status: Acute (5) Essential hypertension Priority: Secondary Status: Chronic (6) Leukocytosis Priority: Secondary Status: Acute Qualifiers: Leukocytosis type: unspecified Qualified Code(s): D72.829 - Elevated white blood cell count, unspecified (7) DVT prophylaxis Priority: Secondary Status: Acute Hospital course: Ms. Haywood is a 77 y/o F with known COPD patient admitted here for worsening shortness of breath, cough with greenish expectoration. Her chest x-ray showed left lower lobe pneumonia. Patient was admitted in the hospital and placed her on empirical antibiotic Rocephin + Azithromycin. Pt was required 2 lit O2 initially. She is currently breathing comfortably on RA. Will do ambulating pulse Oxy. She was required high dose IV steroids intially which made her WBC went high @ 28.5. Now with tapering steroids her WBC trended down to 12.2. Will d/c her home in stable condition today. - Time Spent with Patient Total time spent providing and/or coordinating discharge services: - Discharge Medications Prescriptions: Budesonide/Formoterol 80/4.5 [Symbicort 80/4.5] 2 puff IH BID #1 hfa.aer.ad Levofloxacin [Levaquin] 500 mg PO DAILY #3 tablet PredniSONE [Deltasone] 40 mg PO DAILY #10 tablet Home Medications: Tramadol HCl [Ultram] 50 mg PO TID PRN 03/04/16 [History] Multivit-Minerals/Folic/Ginkgo [One Daily For Women 50+ Adv Tb] 1 tab PO DAILY 03/05/16 [History] Albuterol Sulfate [Albuterol Inhaler] 2 puff IH Q6H PRN 03/09/18 [History] Ipratropium Neb [Atrovent Neb] 0.5 mg IH Q6H PRN MDD USES WITH ALBUTEROL 03/09/18 [History] Lisinopril [Zestril] 10 mg PO DAILY 03/09/18 [History] Budesonide/Formoterol 80/4.5 [Symbicort 80/4.5] 2 puff IH BID #1 hfa.aer.ad 03/12/18 [Rx] Levofloxacin [Levaquin] 500 mg PO DAILY #3 tablet 03/12/18 [Rx] PredniSONE [Deltasone] 40 mg PO DAILY #10 tablet 03/12/18 [Rx] Allergies/Adverse Reactions: Allergy/AdvReac Type Severity Reaction Status Date / Time No Known Allergies Allergy Verified 03/04/16 14:36 Date of admission: 03/11/18 13:28 Primary care physician: Leandro Berrios CNP Consults: 03/09/18 14:39 Consult to Professional Skateboarder [CONS] Routine Reason for SW Consult: discharge planning 03/10/18 10:42 Consult to Nurse Navigator [CONS] Routine Comment: COPD, PNEUMONIA - Constitutional Vitals: Temp Pulse Resp BP Pulse Ox 97.8 F 95 19 129/78 92 03/12/18 11:38 03/12/18 11:38 03/12/18 11:38 03/12/18 11:38 03/12/18 11:38 General appearance: Present: cooperative, A&O X 3, pleasant, answers questions appropriately Exam: Gen: Alert, awake, Oriented to time,place and person Chest: Diminished breath sounds B/L, mild wheezing, No crackles, No rales Heart: S1S2+ RRR No murmurs Abd: Soft, NT, BS +, No organomegaly Ext: No edema, pulses are palpable, No calf tenderness Neuro : Benign findings Skin: No rash. - Patient Status Disposition: Home Health Service Condition: Good Overall status at discharge: patient is back to baseline - Discharge Instructions Follow Up With: Luciano Berrios CNP [Primary Care Provider] - 03/20/18 1:15 pm - Diet and Activity Activity: increase activity as tolerated Diet: low salt diet
--- NOTE | 2018-03-12 14:30 | Physician Discharge Referral ---
Home Health/Hosp Referral Info Transfer to: Home Health Provider in Charge Post Discharge: PCP - Diagnosis (1) Acute exacerbation of chronic obstructive airways disease Status: Acute (2) Community acquired pneumonia Status: Acute (3) Acute respiratory failure with hypoxia Status: Acute (4) Dizziness Status: Acute (5) Essential hypertension Status: Chronic (6) Leukocytosis Status: Acute (7) DVT prophylaxis Status: Acute - Respiratory Orders Smoking Cessation: Smoking cessation has been advised. For more information, call the [place] Tobacco Quit Line at 1-092-JVQG-NOW. - Services Needed Following services are medically necessary services: Nursing - Transfer Medications Prescriptions: Budesonide/Formoterol 80/4.5 [Symbicort 80/4.5] 2 puff IH BID #1 hfa.aer.ad Levofloxacin [Levaquin] 500 mg PO DAILY #3 tablet PredniSONE [Deltasone] 40 mg PO DAILY #10 tablet Home Medications: Tramadol HCl [Ultram] 50 mg PO TID PRN 03/04/16 [History] Multivit-Minerals/Folic/Ginkgo [One Daily For Women 50+ Adv Tb] 1 tab PO DAILY 03/05/16 [History] Albuterol Sulfate [Albuterol Inhaler] 2 puff IH Q6H PRN 03/09/18 [History] Ipratropium Neb [Atrovent Neb] 0.5 mg IH Q6H PRN MDD USES WITH ALBUTEROL 03/09/18 [History] Lisinopril [Zestril] 10 mg PO DAILY 03/09/18 [History] Budesonide/Formoterol 80/4.5 [Symbicort 80/4.5] 2 puff IH BID #1 hfa.aer.ad 03/12/18 [Rx] Levofloxacin [Levaquin] 500 mg PO DAILY #3 tablet 03/12/18 [Rx] PredniSONE [Deltasone] 40 mg PO DAILY #10 tablet 03/12/18 [Rx] Allergies/Adverse Reactions: Allergy/AdvReac Type Severity Reaction Status Date / Time No Known Allergies Allergy Verified 03/04/16 14:36 Certification: Further, I certify that my clinical findings support that this patient is homebound (i.e. absences from home require considerable and taxing effort and are for medical reasons or zoroastrian services or infrequently or short duration when for other reasons) because: Homebound Reason: Patient requires assistance of a person or device to safely leave home Attestation: My signature below is to certify that this patient is under my care and that I, or nurse practitioner, or a physician's nutritional assistant working with me, has a [id number] encounter with this patient.
[2018-03-12 15:17] VITALS: BP 148/79
== END 2018-03-12 15:56 | disposition home health service (06) | DRG 193 ==
LOC: EMEROOARM 11:17 → 3BNU 11:17 → SUATTDRO 12:51 → 3BNU 13:43
PROVIDERS: ADMIT Internal Medicine; ATTEND Family Medicine